=== PATIENT | female | born 2000 | race Caucasian/White ===

== ENCOUNTER 2023-05-25 11:27 | Emergency (ER) | payer OTHER ==
[~2023-05-25] VITALS: Ht 160 cm; Wt 44.2 kg
[2023-05-25] MEDS ORDERED: ONDANSETRON 4MG 2ML VIAL IV ONE (12:00)
[2023-05-25] MEDS ORDERED: HYDROMORPHONE HCL 0.5 MG/ 0.5 ML SYRINGE IV ONE (12:00)
[2023-05-25 12:14] LABS: BASO % 0.3 % (0.0-1.0); EOS # 0.1 10^3/uL (0.0-0.5); EOS % 0.5 % (0.0-3.0); HEMATOCRIT 40.3 % (36.0-47.0); LYMPH # 1.7 10^3/uL (1.5-5.0); LYMPH % 15.6 % (24.0-44.0); MEAN CORPUSCULAR HEMOGLOBIN 30.8 pg (27.0-33.0); MEAN CORPUSCULAR HGB CONC 34.7 g/dl (32.0-36.5); MEAN CORPUSCULAR VOLUME 88.8 fl (80.0-96.0); MONO # 0.5 10^3/uL (0.0-0.8); MONO % 4.3 % (2.0-8.0); NEUTROPHILS # 8.4 10^3/uL (1.5-8.5); PLATELET COUNT, AUTOMATED 268 10^3/uL (150-450); RED BLOOD COUNT 4.54 10^6/uL (4.00-5.40); WHITE BLOOD COUNT 10.6 10^3/uL (4.0-10.0)
[2023-05-25 12:36] LABS: BLOOD UREA NITROGEN 8 MG/DL (9-23); CALCIUM LEVEL 9.7 MG/DL (8.5-10.1); CARBON DIOXIDE LEVEL 26 MMOL/L (20-31); CHLORIDE LEVEL 107 MMOL/L (98-107); CREATININE FOR GFR 0.55 MG/DL (0.55-1.30); GLOMERULAR FILTRATION RATE > 60.0 (>60); GLUCOSE, FASTING 105 MG/DL (60-100); POTASSIUM SERUM 3.8 MMOL/L (3.5-5.1); SODIUM LEVEL 142 MMOL/L (136-145)
[2023-05-25 12:39] VITALS: TEMP 97.8
[2023-05-25 12:56] LABS: HCG, SERUM QUANTITATIVE 1983.5 MIU/ML (<4.2)
[2023-05-25] MEDS ORDERED: ACETAMINOPHEN 500 MG TAB PO ONE (13:55)
[2023-05-25] MEDS ORDERED: IBUP80TA PO (14:52)
[2023-05-25] MEDS ORDERED: PERC5TAB12 PO (14:52)
[2023-05-25 15:05] VITALS: BP 122/72; O2SAT 99
== END 2023-05-25 15:07 | disposition home or self-care (01) ==
LOC: M ED 11:27
DX: O03.4 Incomplete spontaneous abortion without complication (principal); Z88.0 Allergy status to penicillin
CPT/HCPCS: 76801; 80048; 84702; 85025; 86850; 86870; 86900; 86901; 96374; 96375; 99284; J1170; J2405

== ENCOUNTER 2024-12-29 23:35 | Emergency (ER) | payer OTHER ==
[~2024-12-29] VITALS: Ht 160 cm; Wt 95.4 kg
[~2024-12-29 23:35] MED LIST: IBUP80TA PO; PERC5TAB12 PO
[2024-12-30] MEDS: ACETAMINOPHEN 500 MG TAB PO ONE (00:24)
[2024-12-30] MEDS: KETOROLAC 60 MG/2 ML VIAL IM ONE (01:53)
[2024-12-30 02:10] VITALS: BP 95/62; TEMP 97; O2SAT 99
== END 2024-12-30 02:12 | disposition home or self-care (01) ==
LOC: M ED 23:35
DX: R07.89 Other chest pain (principal); R00.1 Bradycardia, unspecified; Z88.1 Allergy status to other antibiotic agents; Z79.1 Long term (current) use of non-steroidal anti-inflammatories (NSAID)
CPT/HCPCS: 71046; 84702; 93005; 96372; 99284; J1885